=== PATIENT | female | born 1955 | race Caucasian/White ===

== ENCOUNTER 2023-07-20 07:59 | Day surgery (SDC) | payer MEDICARE, SELFPAY ==
--- NOTE | 2023-07-19 09:30 | COLBX_PTH ---
PATIENT: NAYANA RAMIREZ LOC: EN U#:[id number] AGE/SX: 67/F ROOM: RE07/20/[address]: Dr. Afsaneh Dey MD : 1955 BED: DIS: 07/20/2023 SPEC #: [id number] RECD: 07/20/23 12:12 STATUS: KP CHARITY #: [id number] KEVIN: 07/19/23 09:[address]: Afsaneh Dey DEPT: SURGICAL PATHOLOGY RECD BY: Dee Harry Tissues: COLON BIOPSY Procedures: Surgery Specimen Level IV HEADER OPERATION: Colonoscopy with biopsy PRE-OP DIAGNOSIS: Screening for malignant neoplasm of colon TISSUE SUBMITTED: Transverse colon polyp MICROSCOPIC DIAGNOSIS Transverse colon polyp, biopsy: Tubular adenoma. SJ: 07/21/2023 MICROSCOPIC DESCRIPTION Slides are reviewed. GROSS DESCRIPTION Received is one container labeled with the patient name and designated transverse colon polyp. The specimen consists of one irregular fragment of light dykes soft tissue that measures 0.3 x 0.3 x 0.1 cm. The specimen is totally submitted in one cassette. /CHRIS:evan 07/20/23 TC:1 CPT: 24067
[2023-07-20] VITALS (7 sets, daily range): BP systolic 107–151; BP diastolic 58–91; PULSE 69–88; RESP 16–18; TEMP 36.1–36.3; O2SAT 96–98; BMI 28.0
[2023-07-20] MEDS: Lactated Ringers 1,000 ML 15 ML IV (08:30)
--- NOTE | 2023-07-20 09:05 | HP.PCM_ITS ---
HPI - General General Date of Service: 07/20/23 HPI Narrative NAYANA RAMIREZ, is a 67 F who presents for screening colonoscopy. Patient denies any changes since office appointment. Office visit 06/09/2023 HPI HPI: 67-year-old female presents for screening colonoscopy. Patient does have a history of colon polyps. Patient last colonoscopy was July 11, 2018 told to return in 5 years no polyps at that time?previous colonoscopy was in [place] as patient has moved. Patient's mom was diagnosed with colon cancer and metastatic colon cancer at age 86. Patient has bowel movement daily denies any blood. Patient denies any chronic abdominal pain/nausea/vomiting/reflux. [facility] Medical History (Updated 07/15/23 @ 10:36 by Sandhya Gavin RN) Alcohol use Cardiology follow-up encounter Easy bruising High cholesterol History of diverticulitis History of echocardiogram Hypertension Kidney calculi Non-smoker Post-menopausal Wears glasses Home Medications calcium carbonate 500 mg calcium (1,250 mg) chewable tablet (Calcium 500) 500 mg PO DAILY 06/09/23 [History Last Taken Unknown] cholecalciferol (vitamin D3) 25 mcg (1,000 unit) capsule 25 mcg PO DAILY 06/09/23 [History Last Taken Unknown] epinephrine 0.3 mg/0.3 mL injection, auto-injector (EpiPen) 0.3 mg IM Q4H PRN anaphylaxis 06/09/23 [History Last Taken Unknown] meclizine 12.5 mg tablet 12.5 mg PO DAILY PRN 07/15/23 [History Last Taken Unknown] metoprolol succinate 100 mg tablet,extended release 24 hr 100 mg PO DAILY 07/15/23 [History Last Taken 07/20/23] Allergy/AdvReac Type Severity Reaction Status Date / Time Penicillins Allergy Intermediate Rash Verified 07/20/23 08:24 venlafaxine [From Effexor] Allergy Intermediate Other Verified 07/20/23 08:24 IV dye Allergy Intermediate Other Uncoded 06/09/23 08:53 fish Allergy Hives Uncoded 06/09/23 08:53 narcotics AdvReac Intermediate Vomiting Uncoded 06/09/23 08:53 Family History (Updated 06/09/23 @ 08:47 by Alejandrina Lebron) Mother Colon cancer Cancer Heart disease Hypertension Thyroid disorder Father Cancer Diabetes Surgical History (Updated 07/15/23 @ 10:36 by Sandhya Gavin RN) H/O LEEP H/O lithotripsy H/O toe surgery Social History (Updated 06/09/23 @ 08:48 by Alejandrina Lebron) Smoking Status: Never smoker alcohol intake: current alcohol intake frequency: holidays/special occasions only substance use type: does not use Past Medical/Surgical History Planned Operation Planned Operative Procedure/s: COLONOSCOPY Previous Hospitalizations/Surgeries HX Hospitalizations: No Any Problems With Anesthesia: Yes (PONV) You/Your Family Experience Fever (Hyperthermia) With Anes: No Cholinesterase deficiency: No Cardiovascular Hx Hypertension: Yes Respiratory Hx Sleep Apnea: No Hx Respiratory Tract Infection/Cold (presently): No Do You Snore Loudly (louder than talking or can be heard): No Do You Often Feel Tired/ Fatigued/ Sleepy Dring Daytime?: No Has Anyone Observed You Stop Breathing During Sleep?: No Result (for STOP score): Negative Smoking Status: Never smoker Neurological Does patient have nerve stimulator: No Reproduction : No Miscellaneous Recent Exposure to Contagious Disease: No Allergies Penicillins Allergy (Intermediate, Verified 07/20/23 08:24) Rash venlafaxine [From Effexor] Allergy (Intermediate, Verified 07/20/23 08:24) Other increased HR/headache IV dye Allergy (Intermediate, Uncoded 06/09/23 08:53) Other Only use half strength fish Allergy (Uncoded 06/09/23 08:53) Hives narcotics Adverse Reaction (Intermediate, Uncoded 06/09/23 08:53) Vomiting Discharge Is Pt Admitted From a [facility], or a [facility]: No After D/C, Where Do you Plan to Go: Return Home Vital Signs Vital Signs Vital Signs: 07/20/23 08:26 07/20/23 08:26 Temperature 97.4 F L Temperature Source Temporal Pulse Rate 88 Respiratory Rate 16 Respiratory Pattern Normal Blood Pressure 151/91 H Blood Pressure Mean 111 Blood Pressure Source Monitor Blood Pressure Position Supine Blood Pressure Location Right Arm Pulse Ox 96 Oxygen Delivery Method Room Air Weight Weight: 158 lb 11.725 oz Body Mass Index (BMI) 28.0 Physical Exam Const alert, oriented x3 and no apparent distress HEENT normocephalic and head/scalp atraumatic Resp normal respiratory effort Cardio regular rate GI soft to palpation and non-tender; Negative for non-distended Palpation: Negative for guarding Extremity no clubbing, cyanosis or edema Skin no rashes or lesions noted Neuro CN's II-XII intact bilaterally Psych mental status grossly normal Assessment & Plan Assessment/Plan (1) Screening for malignant neoplasm of colon: Surgery Risks - Colonoscopy I discussed with the patient the risks of the procedure: Yes Risks Include but are not Limited To: Risks include but are not limited to: Bleeding, perforation requiring further surgery, inability to complete colonoscopy requiring barium enema.
--- NOTE | 2023-07-20 10:25 | OP.CCLET_ITS ---
07/20/2023 Lady Trinidad Re : Colonoscopy procedure for Ning Trinidad This procedure was performed on Thursday, July 20, 2023. My impressions and recommendations are as follows: Impressions : - One less than 5 mm polyp in the transverse colon, removed with a cold biopsy forceps. Resected and retrieved. - Diverticulosis in the sigmoid colon. - The examination was otherwise normal. Recommendations : - Discharge patient to home. - Resume previous diet. - Continue present medications. - Await pathology results. - Repeat colonoscopy in 5 years for surveillance based on pathology results. My findings are described in the full procedure note, which is enclosed. If I can be of further assistance, please feel free to contact me at Doctor phone number(s): , Work: . Sincerely, MD Afsaneh Monteiro MD 07/20/2023 10:25:18 AM This report has been signed electronically.
--- NOTE | 2023-07-20 10:25 | OP.COLON_ITS ---
Patient Name: Ning Davenport Procedure Date: 07/20/2023 9:46 AM Date of : 1955 Age: 67 Procedure: Colonoscopy Indications: Screening for colorectal malignant neoplasm Providers: Afsaneh Dey MD Referring MD: Afsaneh Dey MD Medicines: Monitored Anesthesia Care Patient Profile: This is a 67 year old female. Last Colonoscopy: 5 years ago. Complications: No immediate complications. Procedure: Pre-Anesthesia Assessment: - Prior to the procedure, a History and Physical was performed, and patient medications and allergies were reviewed. The patient's tolerance of previous anesthesia was also reviewed. The risks and benefits of the procedure and the sedation options and risks were discussed with the patient. All questions were answered, and informed consent was obtained. Prior Anticoagulants: The patient has taken no anticoagulant or antiplatelet agents. ASA Grade Assessment: Per anesthesia. After reviewing the risks and benefits, the patient was deemed in satisfactory condition to undergo the procedure. After I obtained informed consent, the scope was passed under direct vision. Throughout the procedure, the patient's blood pressure, pulse, and oxygen saturations were monitored continuously. The colonoscope was introduced through the anus and advanced to the cecum, identified by appendiceal orifice and ileocecal valve. The colonoscopy was performed without difficulty. The patient tolerated the procedure well. The quality of the bowel preparation was good. Scope In: 9:56:54 AM Scope Withdrawal Time 0 hours 8 minutes 13 seconds Scope Out: 10:09:22 AM Total Procedure Duration Time 0 hours 12 minutes 28 seconds Findings: The perianal and digital rectal examinations were normal. A less than 5 mm polyp was found in the transverse colon. The polyp was sessile. The polyp was removed with a cold biopsy forceps. Resection and retrieval were complete. Scattered small-mouthed diverticula were found in the sigmoid colon. The exam was otherwise without abnormality. Impression: - One less than 5 mm polyp in the transverse colon, removed with a cold biopsy forceps. Resected and retrieved. - Diverticulosis in the sigmoid colon. - The examination was otherwise normal. Recommendation: - Discharge patient to home. - Resume previous diet. - Continue present medications. - Await pathology results. - Repeat colonoscopy in 5 years for surveillance based on pathology results. Procedure Code(s): --- Professional --- 10222, PT, Colonoscopy, flexible; with biopsy, single or multiple Diagnosis Code(s): --- Professional --- Z12.11, Encounter for screening for malignant neoplasm of colon D12.3, Benign neoplasm of transverse colon (hepatic flexure or splenic flexure) K57.30, Diverticulosis of large intestine without perforation or abscess without bleeding CPT copyright 2021 [employer]. All rights reserved. The codes documented in this report are preliminary and upon health information coder review may be revised to meet current compliance requirements. MD Afsaneh Monteiro MD 07/20/2023 10:25:18 AM This report has been signed electronically. Number of Addenda: 0 Note Initiated On: 07/20/2023 9:46 AM
== END 2023-07-20 10:56 | disposition home or self-care (01) ==
LOC: EN 08:02 → AC 08:02
PROVIDERS: Referring Provider Surgery; Visit Provider Surgery
PROC: 0DJD8ZZ Inspection of Lower Intestinal Tract, Via Natural or Artificial Opening Endoscopic (ICD-10-PCS; CPT 45378; principal; 2023-07-20 09:25)
DX: Z12.11 Encounter for screening for malignant neoplasm of colon (principal); K57.30 Diverticulosis of large intestine without perforation or abscess without bleeding; E78.00 Pure hypercholesterolemia, unspecified; Z80.0 Family history of malignant neoplasm of digestive organs; Z86.010 Personal history of colon polyps; I10 Essential (primary) hypertension; D12.6 Benign neoplasm of colon, unspecified
CPT/HCPCS: 45380; 88305; J7120; J2405

== ENCOUNTER 2024-03-27 10:30 | Outpatient (RCR) | payer MEDICARE, SELFPAY | END 2024-03-27 19:00 | disposition home or self-care (01) | LOC: PT 10:30 | DX: M76.60 Achilles tendinitis, unspecified leg (principal) | CPT/HCPCS: 97035; 97110; 97140; 97162; 97530 ==

== ENCOUNTER → 2024-05-07 | Outpatient (CLI) | payer MEDICARE, SELFPAY ==
--- NOTE | 2024-05-07 14:18 | RAD_ITS ---
STUDY: X-RAY CHEST REASON FOR EXAM: Female, 68 years old. Cough and shortness of breath. TECHNIQUE: PA and lateral views of the chest. COMPARISON: None. FINDINGS: Elevation of the right hemidiaphragm. Mild degree of increased markings at the right lung base suggestive of right basilar atelectasis. There is no demonstrated pleural abnormality. Normal size heart. Normal mediastinum and ines. Normal visualized pulmonary arteries. Normal visualized aortic arch and descending thoracic aorta. There are diffuse degenerative changes of the visualized thoracic spine. Normal visualized ribs, clavicles, and shoulders. There is no demonstrated abnormality of the visualized soft tissue structures of the upper abdomen. RAD/Chest PA and Lateral IMPRESSION: Findings suggest a mild right basilar atelectasis with elevation of the right hemidiaphragm. Electronically Signed: Devon Mcintyre MD at 14:33 EDT ,
== END | disposition home or self-care (01) ==
PROVIDERS: Referring Provider Physician Assistant; Visit Provider Physician Assistant
DX: R05.9 Cough, unspecified (principal)
CPT/HCPCS: 71046